=== PATIENT | male | born 1955 | race Caucasian/White ===

== ENCOUNTER 2024-02-05 08:54 | Outpatient (CLI) | payer OTHER ==
[~2024-02-05] VITALS: Ht 177.8 cm; Wt 124.7 kg
[2024-02-05 09:29] VITALS: PULSE 62; RESP 16; O2SAT 96
[2024-02-05] MEDS: albuterol 2.5 MG/3 ML nebule NEB ONE (09:29)
[2024-02-05 09:41] VITALS: PULSE 65; RESP 17
== END 2024-02-05 23:59 | disposition home or self-care (01) ==
LOC: RT 08:54
PROVIDERS: ATTEND Chiropractor
DX: R94.2 Abnormal results of pulmonary function studies (principal); R06.02 Shortness of breath
CPT/HCPCS: 94060; 94760